=== PATIENT | male | born 1985 | race Two or more races ===

== ENCOUNTER 2017-11-22 18:41 | Emergency (ER) | payer MEDICAID ==
[~2017-11-22] VITALS: Ht 162.6 cm; Wt 63.5 kg
[2017-11-22 18:51] VITALS: BP 110/70
--- NOTE | 2017-11-22 19:11 | Emergency Room Report ---
History of Present Illness General Chief Complaint: Foreign Body Source: Patient Present Illness HPI 31-year-old male patient presents ER complaining of splinter in his right ring finger 2 days. Reports that he attempted to remove it himself but was unsuccessful. Reports that it is over his PIP joints on the dorsal side, states that it went "straight downward" into his finger. Reports he is right- hand dominant. Denies fever, chest pain, shortness of breath. Denies erythema or edema of joint. Reports pain with movement of finger. Reports received tetanus vaccination "3 or 4 years ago." Allergies: Coded Allergies: No Known Allergies (Unverified , 11/22/17) Patient History Past Medical History: see triage record Reviewed Nursing Documentation: PMH: Agreed; PSxH: Agreed Nursing Documentation-PMH Past Medical History: No Stated History Review of Systems All Other Systems: negative except mentioned in HPI Physical Exam Vital Signs Date Time Temp Pulse Resp B/P (MAP) Pulse Ox O2 Delivery O2 Flow Rate FiO2 11/22/17 18:44 98.3 66 16 110/70 99 Room Air 98.2 Sp02 EP Interpretation: reviewed, normal General Appearance: well appearing, no apparent distress, alert, GCS 15, non- toxic Head: normocephalic, atraumatic Eyes: bilateral eye normal inspection, bilateral eye PERRL ENT: hearing grossly normal, normal pharynx, no angioedema, normal voice, uvula midline, moist mucus membranes Neck: full range of motion Respiratory: lungs clear, normal breath sounds, no rhonchi, no respiratory distress, no accessory muscle use, no wheezing, speaking full sentences Cardiovascular #1: regular rate, rhythm, no edema Cardiovascular #2: 2+ radial (R), 2+ radial (L) Musculoskeletal: back normal, digits/nails normal, gait/station normal, non- tender, decreased range of motion - secondary to pain, other - NVI, tender - PIP joint of right ring finger Skin: other - 2-3 cm puncture wound on dorsum of right hand on right ring finger on the ulnar side near the PIP joint, no erythema or edema, scabbed over Procedures Laceration/Wound Repair Laceration/Wound Repair : Consent: Verbal Wound Location: upper extremity - right index finger Wound's Depth, Shape: superficial Wound Length (cm): 1 Wound Explored: no foreign body removed Irrigated w/ Saline (ccs): 10 Betadine Prep?: Yes Anesthesia: 1% Lidocaine Volume Anesthetic (ccs): 2 Layer Closure?: No Splint Applied?: Yes Sling Applied?: No Patient Tolerated: Well Complications: None Medical Decision Making PA Attestation Dr. Kennedy is my supervising Physician whom patient management has been discussed with. Diagnostic Impression: Primary Impression: Splinter in skin ER Course Pt. presents to the ED c/o splinter in finger. Ddx considered but are not limited to tendon foreign body, cellulitis, abscess, fracture no fusiform swelling, no flexor tendon tenderness to palpation, low suspicion for flexor tenosynovitis. Vital signs: are WNL, pt. is afebrile ER COURSE: Xray of the right hand shows no foreign body, no acute disease per the preliminary reading. Verbal consent provided by patient to attempt removal of foreign body. Digital block performed using 2 mL of 1% lidocaine without epi. Wound irrigated and clean with copious amounts of water and betadine. No FB visualized at that time. Small <4 mm linear laceration was made at site of splinter puncture wound. Unable to visualize and remove foreign body from Finger. Will not suture wound, will allow to heal by secondary intention. Wound cleaned and irrigated with saline and dressed with sterile gauze, bacitracin applied, finger splinted. Splint was applied to the right ring finger was checked afterwards by me showing good alignment and support with distal neurovascular functioning intact. Patient reports pain symptoms improved since arrival to ER. Provided patient with referrals to hand specialist to discuss removal of splinter. Contact hand specialist to schedule appointment. Will provide patient with antibiotic treatment at discharge to home. Keep wound clean and dry. provided antibiotic coverage to help prevent infection with topical and oral abx. DISCHARGE: Rx provided for Keflex Rx provided for Bactroban Rx provided for ibuprofen At this time pt is stable for d/c to home. Patient is resting comfortably, in no acute distress, nontoxic appearing, talking without difficulty. Patient to take medications as instructed Will provide with patient care instructions and any necessary prescriptions. Care plan and follow-up instructions provided. Patient instructed to follow-up with primary care provider in 3 - 5 days. Patient questions asked and answered. Patient reports understanding and agreement to treatment plan. ER precautions given. Patient instructed to return to ER immediately for any new or worsening of symptoms including but not limited to increasing SOB, persistent fever, chest pain, intractable vomiting. - Please note that this Emergency Department Report was dictated using [employer] technology software, occasionally this can lead to erroneous entry secondary to interpretation by the dictation equipment. Other X-Ray Diagnostic Results Other X-Ray Diagnostic Results : X-Ray ordered: right hand # of Views/Limited Vs Complete: 3 View Indication: Pain EP Interpretation: Yes PA Xray: Interpretation reviewed, by supervising MD, and agrees with findings. Interpretation: no dislocation, no soft tissue swelling, no fractures Impression: No acute disease MYAH ScribRamiro Goins PA-C Last Vital Signs Date Time Temp Pulse Resp B/P (MAP) Pulse Ox O2 Delivery O2 Flow Rate FiO2 11/22/17 18:51 98.2 16 110/70 99 Room Air 98.2 11/22/17 18:44 64 Disposition: HOME, SELF-CARE Condition: Stable Scripts Ibuprofen* (MOTRIN*) 600 Mg Tablet 600 MG ORAL Q8H PRN for For Pain, #30 TAB 0 Refills Prov: Harry Goins 11/22/17 Mupirocin Calcium (Bactroban) 15 Gm Cream..g. 1 APPLIC TOPIC THREE TIMES A DAY for 7 Days, #15 GM Prov: Harry Goins 11/22/17 Cephalexin* (KEFLEX*) 500 Mg Capsule 500 MG ORAL EVERY 12 HOURS, #14 CAP 0 Refills Prov: Harry Goins 11/22/17 Patient Instructions: Nonsutured Laceration Care Additional Instructions: Followup with primary care provider in 3 -5 days. Followup with hand specialist. Contact tomorrow to schedule appointment to discuss splinter removal. Take medications as directed. Keep wound clean and dry. Patient questions asked and answered. ER precautions given, patient instructed to return to ER immediately for any new or worsening of symptoms. Harry Goins Nov 22, 2017 19:11
[2017-11-22] MEDS ORDERED: Lidocaine 1% MPF 10mg/ml 5ml INJ ONE (19:15)
[2017-11-22] MEDS ORDERED: Bacitracin Oint UD TOPIC ONE (19:15)
[2017-11-22] MEDS ORDERED: CEPHALEXIN500 MG ORAL (19:53)
[2017-11-22] MEDS ORDERED: BACITRACIN-P28.35 GM TP (19:53)
[2017-11-22] MEDS ORDERED: BACTROBAN CR1 APPLIC TOPIC (19:55)
[2017-11-22] MEDS ORDERED: IBUPROFEN600 MG ORAL (19:58)
[2017-11-22 20:05] VITALS: BP 110/70
--- NOTE | 2017-11-23 14:56 | Diagnostic Imaging Report ---
Indication: Pain. Foreign body Technique: XRAY Hand Complete R Comparison: None Findings: No evidence of acute fracture. Alignment and joint spaces within normal limits. No focal soft tissue defect identified. No radiopaque foreign body. Impression: No acute fracture or dislocation. No radiopaque foreign body identified.
== END 2017-11-22 20:05 | disposition home or self-care (01) ==
LOC: EMR 19:17
DX: S60.454A Superficial foreign body of right ring finger, initial encounter (principal); S61.234A Puncture wound without foreign body of right ring finger without damage to nail, initial encounter; W45.8XXA Other foreign body or object entering through skin, initial encounter; Y92.9 Unspecified place or not applicable
CPT/HCPCS: 99283